=== PATIENT | female | born 1960 | race Two or more races ===

== ENCOUNTER 2017-06-04 19:25 | Emergency (ER) | payer SELFPAY ==
[~2017-06-04] VITALS: Ht 154.9 cm; Wt 72.1 kg
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
--- NOTE | 2017-06-04 19:45 | NUR ---
DR PUGH AT BEDSIDE TO EVAL.
[2017-06-04] MEDS ORDERED: ONDANSETRON 4 MG TAB.RAPDIS ONE (20:14)
[2017-06-04] MEDS ORDERED: MORPHINE SULFATE INJ 10 MG/ML DISP.SYRIN ONE (20:14)
--- NOTE | 2017-06-04 20:19 | NUR ---
medicated pt as ordered
--- NOTE | 2017-06-04 20:21 | NUR ---
xr at bedside.
[2017-06-04] MEDS ORDERED: MORPHINE SULFATE INJ 2 MG/ML DISP.SYRIN IM ONE (20:30)
[2017-06-04] MEDS ORDERED: ONDANSETRON HCL/PF 4 MG/2 ML VIAL IM ONE (20:30)
[2017-06-04] MEDS ORDERED: HYDROMORPHONE 1 MG/1 ML DISP.SYRIN ONE (20:49)
[2017-06-04] MEDS ORDERED: HYDROMORPHONE 1 MG/1 ML DISP.SYRIN IM ONE (21:00)
--- NOTE | 2017-06-04 21:46 | NUR ---
splint applied on the right foream to hand, intact cms post application.
--- NOTE | 2017-06-04 21:46 | NUR ---
patient refused shoulder immobilizer after encouragement and health teachings, she said, "i am just going to buy outside cause this can be expensive if its from here."
--- NOTE | 2017-06-04 21:49 | NUR ---
Patient discharged to home in stable condition. Written and verbal after care instructions given. Patient verbalizes understanding of instruction. Patient is ambulatory with steady gait, accompanied by friend going home. Instructed not to drive. No further complaints.
[2017-06-04 21:50] VITALS: BP 138/89
== END 2017-06-04 21:52 | disposition home or self-care (01) ==
LOC: ER 19:26
DX: S52.501A Unspecified fracture of the lower end of right radius, initial encounter for closed fracture (principal); V43.52XA Car driver injured in collision with other type car in traffic accident, initial encounter; Y93.89 Activity, other specified; Y92.488 Other paved roadways as the place of occurrence of the external cause; Y99.8 Other external cause status
CPT/HCPCS: 73030-TC; 73100-TC; A4606; J1170; J2270; Q0162; Z7610